=== PATIENT | male | born 1935 | race Caucasian/White ===

== ENCOUNTER → 2018-06-20 | Outpatient (CLI) | payer MEDICARE, OTHER ==
--- NOTE | 2018-06-20 09:10 | RADIOLOGY REPORT (SQ) ---
EXAM DESCRIPTION: MRI ABDOMEN WITHOUT COMPLETED DATE/TIME: 06/20/2018 8:18 am REASON FOR STUDY: *MRCP* DILATED CBD (K83.8) R10.9 UNSPECIFIED ABDOMINAL PAIN K83.8 OTHER SPECIFIE D DISEASES OF BILIARY TRACT COMPARISON: None. TECHNIQUE: Noncontrast MRCP. Source and MIP images reviewed. LIMITATIONS: Motion. FINDINGS: Prominent central intrahepatic ducts. Common hepatic and common bile duct mildly dilated and tortuous. Common bile duct measures just under 10 mm at the level of the pancreatic head. No ga llstones identified. Incidental liver cysts. No ascites. IMPRESSION: Mild intra and extra hepatic biliary dilatation without visualized common bile duct ston e or ampullary mass. TECHNICAL DOCUMENTATION: JOB ID: [id number] [employer]- All Rights Reserved Reading location - IP/workstation name: [email or web address]
== END ==
LOC: RAD 06:52
PROVIDERS: ATTEND Internal Medicine Gastroenterology
DX: K83.8 Other specified diseases of biliary tract (principal)
CPT/HCPCS: 74181

== ENCOUNTER 2019-01-21 19:22 | Emergency (ER) | payer MEDICARE, OTHER ==
--- NOTE | 2019-01-21 19:43 | ER Document Report ---
ED Medical Screen (RME) - General Chief Complaint: Chest Pain Stated Complaint: CHEST PAIN Time Seen by Provider: 01/21/19 19:36 Primary Care Provider: NEIL ARGUETA MD [Primary Care Provider] - Follow up as needed Mode of Arrival: Ambulatory Information source: Patient Notes: Patient is an 83-year-old male presenting to the emergency department with abdominal pain. He reports pain started in the epigastric region this morning when he woke up and is now located throughout his entire abdomen. He denies any fever, nausea, vomiting or diarrhea. He reports he is passing a lot of gas. He reports he had a normal bowel movement this morning. He states he has been having recurrent abdominal pain over the last year with no real diagnosis other than a hiatal hernia. Patient initially reported chest pain to the triage desk however upon further questioning patient reports the pain is not in his chest but in the abdomen. Exam: Generalized abdominal tenderness to palpation. I have greeted and performed a rapid initial assessment of this patient. A comprehensive ED assessment and evaluation of the patient, analysis of test results and completion of the medical decision making process will be conducted by additional ED providers. Dictation of this chart was performed using voice recognition software; therefore, there may be some unintended grammatical errors. TRAVEL OUTSIDE OF THE [place] IN LAST 30 DAYS: No Physical Exam - Vital signs Vitals: Temp Pulse Resp BP Pulse Ox 97.8 F 67 18 190/68 H 99 01/21/19 19:35 01/21/19 19:35 01/21/19 19:35 01/21/19 19:35 01/21/19 19:35 Course - Vital Signs Vital signs: Temp Pulse Resp BP Pulse Ox 97.8 F 67 18 190/68 H 99 01/21/19 19:35 01/21/19 19:35 01/21/19 19:35 01/21/19 19:35 01/21/19 19:35 Doctor's Discharge - Discharge Referrals: NEIL ARGUETA MD [Primary Care Provider] - Follow up as needed
[2019-01-21 20:07] LABS: ABSOLUTE LYMPHOCYTES (AUTO) 1.2 10^3/uL (0.5-4.7); ABSOLUTE MONOCYTES (AUTO) 0.4 10^3/uL (0.1-1.4); ABSOLUTE NEUT (AUTO) 5.5 10^3/uL (1.7-8.2); BASOPHILS % (AUTO) 0.3 % (0-2); EOSINOPHILS % (AUTO) 0.4 % (0-6); HEMATOCRIT 39.4 % (37.9-51.0); HEMOGLOBIN 13.3 g/dL (13.5-17.0); LYMPHOCYTES % (AUTO) 16.2 % (13-45); MEAN CORPUSCULAR HEMOGLOBIN 31.1 pg (27.0-33.4); MEAN CORPUSCULAR HGB CONC 33.8 g/dL (32.0-36.0); MEAN CORPUSCULAR VOLUME 92 fl (80-97); MONOCYTES % (AUTO) 5.9 % (3-13); PLATELET COUNT 216 10^3/uL (150-450); RED BLOOD COUNT 4.28 10^6/uL (4.35-5.55); SEGMENTED NEUTROPHILS % (AUTO) 77.2 % (42-78); TOTAL CELLS COUNTED % (AUTO) 100 %; WHITE BLOOD COUNT 7.1 10^3/uL (4.0-10.5)
[2019-01-21 20:13] LABS: APPEARANCE,URINE CLEAR; BILIRUBIN,URINE NEGATIVE (NEGATIVE); COLOR,URINE YELLOW; GLUCOSE, URINE NEGATIVE (NEGATIVE); KETONES,URINE TRACE mg/dL (NEGATIVE); LEUKOCYTE ESTERASE,URINE NEGATIVE (NEGATIVE); NITRITE,URINE NEGATIVE (NEGATIVE); PROTEIN,URINE NEGATIVE (NEGATIVE); URINE SPECIFIC GRAVITY 1.012; UROBILINOGEN,URINE NEGATIVE mg/dL (<2.0)
[2019-01-21 20:25] LABS: ALANINE AMINOTRANSFERASE 25 U/L (21-72); ALBUMIN 4.8 g/dL (3.5-5.0); ALKALINE PHOSPHATASE 83 U/L (38-126); ANION GAP 16 (5-19); ASPARTATE AMINO TRANSFERASE 23 U/L (17-59); BILIRUBIN,DIRECT 0.2 mg/dL (0.0-0.4); BILIRUBIN,TOTAL 0.7 mg/dL (0.2-1.3); BLOOD UREA NITROGEN 9 mg/dL (7-20); CARBON DIOXIDE 21 mmol/L (22-30); CHLORIDE 104 mmol/L (98-107); GLUCOSE 134 mg/dL (75-110); POTASSIUM 4.1 mmol/L (3.6-5.0); SODIUM 140.5 mmol/L (137-145); TOTAL PROTEIN 7.4 g/dL (6.3-8.2)
[2019-01-21 20:28] LABS: LIPASE < 10.0 U/L (23-300)
[2019-01-21] MEDS ORDERED: FAMOTIDINE 20 MG TABLET PO ONE (20:46)
[2019-01-21] MEDS ORDERED: LIDOCAINE 2% VISCOUS SOLN 20 ML UDCUP PO ONE (20:46)
[2019-01-21] MEDS ORDERED: SUCRALFATE 1 GM TABLET PO ONE (20:47)
[2019-01-21] MEDS ORDERED: METOCLOPRAMIDE HCL ORAL SOLN 10 MG/10 ML UDCUP PO ONE (20:47)
[2019-01-21] MEDS ORDERED: MAG HYDROX/AL HYDROX/SIMETH SUSP 30 ML UDCUP PO ONE (20:47)
[2019-01-21] MEDS ORDERED: NORMAL SALINE 1000 ML 1,000 ML IV ONE (21:04)
[2019-01-21] MEDS ORDERED: ONDANSETRON HCL INJ/PF 4 MG/2 ML SDV IV ONE (21:04)
[2019-01-21] MEDS ORDERED: MORPHINE SULFATE 10 MG/ML INJ IV PRN (21:04)
--- NOTE | 2019-01-21 22:21 | RADIOLOGY REPORT (SQ) ---
EXAM DESCRIPTION: CT ABDOMEN PELVIS WITH IV CONTRAST COMPLETED DATE/TME: 01/21/2019 20:33 CLINICAL HISTORY: 83 years, Male, elderly, abd pain COMPARISON: MRI abdomen 06/20/2018. TECHNIQUE: CT of the abdomen and pelvis was performed following intravenous administration of contrast. Oral contrast was not administered. Multiplanar reformatted images were provided. This exam was performed according to our departmental dose optimization program which includes use of automated exposure control, adjustment of the mA and/or kV according to patient size and/or use of iterative reconstruction technique. Images stored on PACS. All CT scanners at this facility use dose modulation, iterative reconstruction, and/or weight based dosing when appropriate to reduce radiation dose to as low as reasonably achievable (ALARA). [facility]: Dose Right [facility]: CareDose [facility]: Dose Right [facility]: Teradose 4D [facility]: SecureAlert LIMITATIONS: Upper abdominal streak artifact. FINDINGS: Chest: Evaluation through the lung bases reveals no focal opacity, pleural effusion or pneumothorax. Heart size is within normal limits. No pericardial effusion. Small hiatal hernia or gastroesophageal junction diverticulum Abdomen and pelvis: Moderate to severe intrahepatic biliary dilation. The common bile duct measures up to 15 mm in diameter proximally and tapers distally without findings to suggest etiology of obstructive process. Dilation of the pancreatic duct measuring centimeter with atrophy of the pancreas. Fat-containing lesion involving the LEFT adrenal gland measuring 15 mm suggestive of adrenal adenoma. The gallbladder, spleen, bilateral kidneys and RIGHT adrenal glands are within normal limits. The vessels reveal atherosclerotic calcification otherwise patent and normal in caliber. No abdominopelvic lymph nodes are noted to be pathologically enlarged by CT measurement criteria. The bowel is within normal limits without abnormal bowel wall thickness or bowel dilation. Large volume of fecal content present throughout the large bowel raising the question of fecal stasis or constipation. Diverticular disease without findings to suggest diverticulitis. No free air. No free abdominopelvic fluid collections. The appendix is not visualized. Enlarged prostate gland measuring 5.8 x 4.6 cm The osseous structures reveal degenerative change. IMPRESSION: 1. No specific acute intra-abdominal findings are noted to suggest etiology of the patient's abdominal pain. 2. Stable intra-and extrahepatic biliary and pancreatic duct dilation of uncertain etiology. 3. Large volume of fecal content present throughout the large bowel raising the question of fecal stasis or constipation. 4. Diverticular disease without findings to suggest diverticulitis. 5. Enlarged prostate gland TECHNICAL DOCUMENTATION: Quality ID # [id number]: Final reports with documentation of one or more dose reduction techniques (e.g., Automated exposure control, adjustment of the mA and/or kV according to patient size, use of iterative reconstruction technique) copyright 2011 [employer]- All Rights Reserved
[2019-01-21] MEDS ORDERED: LACTULOSE SYRUP 20 GM/30 ML UDCUP PO ONE (22:36)
--- NOTE | 2019-01-21 22:47 | ER Document Report ---
ED General - General Chief Complaint: Chest Pain Stated Complaint: CHEST PAIN Time Seen by Provider: 01/21/19 19:36 Primary Care Provider: NEIL ARGUETA MD [ACTIVE STAFF] - Follow up as needed Mode of Arrival: Ambulatory Notes: Patient is an 83-year-old male with past medical history of essential hypertension, prior surgical history of an appendectomy, presenting to the emergency department with abdominal pain. He reports pain started in the epigastric region this morning when he woke up and is now located throughout his entire abdomen. Is a throbbing, constant, cramping, global pain. Regards it is being severe. Nothing seems to improve or worsen the pain. Has had nausea but no vomiting. He denies any fever,or diarrhea. He reports he is passing a lot of gas. He reports he had a normal bowel movement this morning. He states he has been having recurrent abdominal pain over the last year with no real diagnosis other than a hiatal hernia. Patient initially reported chest pain to the triage desk however upon further questioning patient reports the pain is not in his chest but in the abdomen. Has not seen his primary care doctor regarding today's abdominal pain. TRAVEL OUTSIDE OF THE [place] IN LAST 30 DAYS: No - Related Data Allergies/Adverse Reactions: No Known Allergies Allergy (Verified 01/21/19 20:10) Past Medical History - General Information source: Patient - Social History Smoking Status: Former Smoker Frequency of alcohol use: 3 beers a night Drug Abuse: None Lives with: Alone Family History: Reviewed & Not Pertinent Patient has suicidal ideation: No Patient has homicidal ideation: No - Past Medical History Cardiac Medical History: Reports: Hx Hypertension Renal/ Medical History: Denies: Hx Peritoneal Dialysis Past Surgical History: Reports: Hx Abdominal Surgery - Hernia repair, Hx Appendectomy, 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 HENT: Negative for sore throat. Eyes: Negative for visual changes. Cardiovascular: Negative for chest pain. Respiratory: Negative for shortness of breath. Gastrointestinal: Positive for abdominal pain and nausea Genitourinary: Negative for dysuria. Musculoskeletal: Negative for back pain. Skin: Negative for rash. Neurological: Negative for headaches, weakness or numbness. 10 point ROS negative except as marked above and in HPI. Physical Exam - Vital signs Vitals: Temp Pulse Resp BP Pulse Ox 97.8 F 67 18 190/68 H 99 01/21/19 19:35 01/21/19 19:35 01/21/19 19:35 01/21/19 19:35 01/21/19 19:35 Interpretation: Hypertensive Notes: PHYSICAL EXAMINATION: GENERAL: Appears moderately uncomfortable but in no overt distress HEAD: Atraumatic, normocephalic. EYES: Pupils equal round and reactive to light, extraocular movements intact, sclera anicteric, conjunctiva are normal. ENT: nares patent, oropharynx clear without exudates. Mildly dry mucous membranes. NECK: Normal range of motion, supple without lymphadenopathy LUNGS: Breath sounds clear to auscultation bilaterally and equal. No wheezes rales or rhonchi. HEART: Regular rate and rhythm without murmurs ABDOMEN: Soft, focal tenderness the epigastrium but no other localized areas of tenderness, normoactive bowel sounds. No guarding, no rebound. No masses appreciated. EXTREMITIES: Normal range of motion, no pitting or edema. No cyanosis. NEUROLOGICAL: No focal neurological deficits. Moves all extremities sp ontaneously and on command. PSYCH: Somewhat anxious SKIN: Warm, Dry, normal turgor, no rashes or lesions noted. Course - Re-evaluation Re-evalutation: 01/21/19 22:43 Patient presents with 12 hours of generalized abdominal pain most localized on exam. The patient appears uncomfortable on initial assessment, no vital sign derangements on initial evaluation. Labs notable for mild lactate elevation otherwise unremarkable. CT scan of the abdomen pelvis with IV contrast without evidence of mesenteric ischemia, pancreatitis, or any alternative life threatening condition. Nonspecific intrahepatic and common bile duct dilation n oted although unchanged from an MRI in June 2018 obtained for similar symptoms by the patient's history. Prominent colonic stool retention noted and patient has been given lactulose to try to result in a bowel movement and hopefully improvement of his pain. Alternative consideration would include gastritis given that the patient does drink heavily and is having epigastric abdominal discomfort with belching and reflux type symptoms. At this time, given reassuring evaluation both by labs, imaging and vitals I do not believe the patient requires hospitalization or emergent surgical consultation. At this time will discharge with return precautions and follow-up recommendations. Verbal discharge instructions given a the bedside and opportunity for questions given. Medication warnings reviewed. Patient is in agreement with this plan and has verbalized understanding of return precautions and the need for primary care follow-up in the next 24-72 hours. - Vital Signs Vital signs: Temp Pulse Resp BP Pulse Ox 97.7 F 67 11 L 170/72 H 97 01/21/19 21:21 01/21/19 19:35 01/21/19 22:00 01/21/19 22:00 01/21/19 22:00 - Laboratory Result Diagrams: 01/21/19 19:50 01/21/19 19:50 Laboratory results interpreted by me: 01/21/19 01/21/19 01/21/19 19:50 19:50 19:50 RBC 4.28 L Hgb 13.3 L Carbon Dioxide 21 L Glucose 134 H Lactic Acid Lipase < 10.0 L Urine Ketones TRACE H 01/21/19 21:45 RBC Hgb Carbon Dioxide Glucose Lactic Acid 3.6 H Lipase Urine Ketones - Diagnostic Test Radiology reviewed: Reports reviewed - EKG Interpretation by Me Additional EKG results interpreted by me: 01/21/19 22:45 Sinus arrhythmia, rate averaging 73. No ST elevations or depressions. QTC 476. Discharge - Discharge Clinical Impression: Epigastric abdominal pain, Nausea Constipation Qualifiers: Constipation type: unspecified constipation type Qualified Code(s): K59.00 - Constipation, unspecified Condition: Stable Disposition: HOME, SELF-CARE Additional Instructions: Your symptoms appear to be most consistent with stomach or upper intestinal irritation. CT scan shows constipation but is otherwise unchanged from an MRI that you had in June 2018. Please begin taking famotidine 40 mg in the morning and 40 mg at night. Take Carafate prior to meals. You may also take medicine such as Pepto-Bismol or Tums to assist with your pain. Please return to emergency department immediately if you have worsening of your pain, shortness of breath, vomiting, become unable to exert yourself due to pain or difficulty breathing, you pass out, or have any pain that radiates into your arms, jaw, or back. Please also return if you have any additional symptoms that are concerning to you. As we have discussed, the most important thing is lifestyle changes. You need to avoid smoking, sodas, tea, coffee, alcohol, spicy foods, and acidic foods such as citrus fruits, tomato based products, berries, and most fruit juices. As we discussed, today we did not find an absolutely definitive cause of your abdominal pain. Upper intestinal irritation is a presumptive diagnosis and you do require further evaluation for the ongoing abdominal pain that you have been experiencing through your primary care doctor. Prescriptions: Famotidine 40 mg PO BID #60 tablet Sucralfate [Carafate 1 gm Tablet] 1 gm PO ACHS #120 tablet Referrals: NEIL ARGUETA MD [ACTIVE STAFF] - Follow up tomorrow
[2019-01-21 23:12] VITALS: BP 158/62
--- NOTE | 2019-01-21 23:25 | EKG REPORT ---
SEVERITY:- BORDERLINE ECG - SINUS RHYTHM WITH APC BORDERLINE LEFT AXIS DEVIATION BORDERLINE PROLONGED QT INTERVAL : Confirmed by: Jessica Deleon MD 21-Jan-2019 23:24:16
== END 2019-01-21 23:11 | disposition home or self-care (01) ==
LOC: ER 19:22
DX: R10.13 Epigastric pain (principal); K59.00 Constipation, unspecified; R11.0 Nausea; R07.9 Chest pain, unspecified; R10.9 Unspecified abdominal pain; Z87.891 Personal history of nicotine dependence; I10 Essential (primary) hypertension
CPT/HCPCS: 93005; 99284; 96361; 96374; 96375; 36415; 83605; 83690; 85025; 80053; 81001; 84484; 74177; 93010; A9270 ×4; J3490; J2270; J2405; J7030